=== PATIENT | male | born 1950 | race Caucasian/White ===

== ENCOUNTER 2017-12-03 16:40 | Inpatient (IN) | payer MEDICARE, OTHER ==
[~2017-12-03] VITALS: Ht 182.9 cm; Wt 93.3 kg
[2017-12-03 17:29] LABS: Basophils # (auto) 0.1 uL; Basophils % (auto) 0.8 % (0.0-2.0); Eosinophils # (auto) 0 uL; Eosinophils % (auto) 0.3 % (0.0-7.0); Hematocrit 42.6 % (41.0-53.0); Hemoglobin 14.4 g/dL (13.5-17.5); Lymphocytes # (auto) 0.5 uL; Lymphocytes % (auto) 3.8 % (10.0-50.0); Mean Corpuscular Hemoglobin 30.1 pg (28.0-32.0); Mean Corpuscular Hgb Conc. 33.9 g/dL (32.0-36.0); Mean Corpuscular Volume 88.8 fL (80.0-100.0); Monocytes # (auto) 0.8 uL; Monocytes % (auto) 5.9 % (0.0-12.0); Neutrophils # (auto) 12.5 uL; Neutrophils % (auto) 89.2 % (37.0-80.0); Platelet Count (auto) 179 10^3/uL (140-450); Red Blood Cells 4.79 10^6/uL (4.5-5.90); Red Cell Distribution Width 14.5 % (11.8-14.3); White Blood Cell 14.1 10^3/uL (4.4-10.8)
[2017-12-03 17:43] LABS: Albumin 2.5 g/dL (3.4-5.0); Calcium 7.7 mg/dL (8.5-10.1); Potassium 3.1 mmol/L (3.5-5.1)
[2017-12-03 17:59] LABS: Bilirubin, Total 0.8 mg/dL (0.2-1.0); Total Protein 7.4 g/dL (6.4-8.2)
[2017-12-03] MEDS ORDERED: SODIUM CHLORIDE 0.9% 1,000 ML IVB ONE (18:52)
[2017-12-03 20:12] LABS: Lactic Acid w/Reflex 2.5 mmol/L (0.4-2.0)
[2017-12-03 20:15] LABS: INR 1.02 (0.9-1.15); Partial Thromboplastin Time 38.7 sec (23.78-33.04); Prothrombin Time 10.9 sec (9.27-12.13)
[2017-12-03] MEDS ORDERED: SODIUM CHLORIDE 0.9% 1,000 ML IV ONE (21:30)
[2017-12-03] MEDS ORDERED: cefTRIAXone 1GM/10ml IVPUSH 10 ML IV ONE (21:30)
[2017-12-03] MEDS ORDERED: ENOXAPARIN SOD 100 MG/1 ML SYRINGE SC ONE (22:30)
[2017-12-03] MEDS ORDERED: POTASSIUM CHL 20 Meq TABLET PO ONE (22:30)
[2017-12-03] MEDS ORDERED: CLINDAMYCIN 600MG IV 50 ML IV ONE (23:30)
[2017-12-03] MEDS ORDERED: TEMAZEPAM 15 MG CAP PO PRN (23:30)
[2017-12-03] MEDS ORDERED: ONDANSETRON HCL 4 MG/2 ML VIAL IV PRN (23:30)
[2017-12-03] MEDS ORDERED: MORPHINE SULFATE 4 MG/ML SYR/VIAL IV PRN (23:30)
[2017-12-04] MEDS ORDERED: MORPHINE SULFATE 4 MG/ML SYR/VIAL ONE (00:18)
[2017-12-04 00:50] LABS: Urine Bacteria NONE SEEN /hpf (None Seen); Urine Blood 2+ /uL (Negative); Urine Mucus FEW (None Seen); Urine Specific Gravity 1.022 (1.001-1.035); Urine WBC 13 /hpf (0 - 3)
[2017-12-04 01:07] LABS: Alcohol, Urine < 3.0 mg/dL (0-5); Amphetamine Screen, Urine POSITIVE (NEGATIVE); Barbiturate Scree,Urine NEGATIVE (NEGATIVE); Benzodiazephine Screen, Urine NEGATIVE (NEGATIVE); Cannabinoid Screen, Urine NEGATIVE (NEGATIVE); Cocaine Screen, Urine NEGATIVE (NEGATIVE); Opiate Scree,Urine NEGATIVE (NEGATIVE); Phencyclidine Screen, Urine NEGATIVE (NEGATIVE)
[2017-12-04 02:00] VITALS: BP 134/71
[2017-12-04 02:16] VITALS: BP 134/71
[2017-12-04] MEDS ORDERED: HYDR-531 PO (02:59)
[2017-12-04] MEDS ORDERED: ASPI81TA27 PO (03:00)
[2017-12-04] MEDS: HYDROcodone-ACET 5/325MG TAB PO PRN ×2 (03:39→11:24)
[2017-12-04 05:20] LABS: Basophils # (auto) 0 uL; Basophils % (auto) 0.3 % (0.0-2.0); Eosinophils # (auto) 0 uL; Hematocrit 36.4 % (41.0-53.0); Hemoglobin 12.4 g/dL (13.5-17.5); Lymphocytes # (auto) 0.7 uL; Lymphocytes % (auto) 7.8 % (10.0-50.0); Mean Corpuscular Hemoglobin 30.4 pg (28.0-32.0); Mean Corpuscular Hgb Conc. 34.1 g/dL (32.0-36.0); Mean Corpuscular Volume 89.1 fL (80.0-100.0); Monocytes # (auto) 0.7 uL; Monocytes % (auto) 7.7 % (0.0-12.0); Neutrophils # (auto) 7.2 uL; Neutrophils % (auto) 84.2 % (37.0-80.0); Platelet Count (auto) 145 10^3/uL (140-450); Red Blood Cells 4.09 10^6/uL (4.5-5.90); Red Cell Distribution Width 14.7 % (11.8-14.3); White Blood Cell 8.6 10^3/uL (4.4-10.8)
[2017-12-04 05:46] LABS: BUN/Creatinine Ratio 19.7; Calcium 7.4 mg/dL (8.5-10.1)
[2017-12-04 05:50] LABS: Potassium 2.9 mmol/L (3.5-5.1)
[2017-12-04 06:00] VITALS: BP 115/71
[2017-12-04] MEDS: CLINDAMYCIN 600MG IV 50 ML IV SCH ×3 (06:09→21:29)
[2017-12-04] MEDS ORDERED: POTASSIUM CHL 20 Meq TABLET PO ONE (07:00)
[2017-12-04] MEDS: METOPROLOL TARTRATE 25 MG TAB PO SCH ×2 (10:00→21:30)
[2017-12-04] MEDS: ASPirin-EC 81 mg tab PO SCH (11:23)
[2017-12-04] MEDS: ENOXAPARIN SOD 100 MG/1 ML SYRINGE SC SCH ×2 (11:24→21:30)
[2017-12-04 12:00] VITALS: BP 116/65
[2017-12-04] MEDS ORDERED: SODIUM CHLORIDE 0.9% 1,000 ML IV SCH (12:00)
[2017-12-04] MEDS ORDERED: SODIUM CHLORIDE 0.9% 1,000 ML IV ONE (12:00)
[2017-12-04] MEDS: ACETAMINOPHEN 500 MG TAB PO PRN ×2 (12:57→23:49)
[2017-12-04] MEDS ORDERED: LISINOPRIL 20 MG TAB PO ONE (14:00)
[2017-12-04 15:58] VITALS: BP 101/61
[2017-12-04] MEDS: SODIUM CHLORIDE 0.9% 1,000 ML IV SCH (17:00)
[2017-12-04 19:49] VITALS: BP 107/62
[2017-12-04] MEDS: cefTRIAXone 1GM/10ml IVPUSH 10 ML IV SCH (20:50)
[2017-12-04] MEDS: ATORVASTATIN 20 MG TAB PO SCH (21:29)
[2017-12-04] MEDS: CHLORHEXIDINE 4% TOPICAL soln 237ML TOP SCH (21:30)
[2017-12-05] VITALS (7 sets, daily range): BP systolic 102–120; BP diastolic 58–75
[2017-12-05] MEDS: SODIUM CHLORIDE 0.9% 1,000 ML IV SCH ×3 (03:03→23:00)
[2017-12-05] MEDS: CLINDAMYCIN 600MG IV 50 ML IV SCH ×3 (05:24→21:36)
[2017-12-05] MEDS: HYDROcodone-ACET 5/325MG TAB PO PRN ×2 (07:56→20:23)
[2017-12-05] MEDS ORDERED: ADENOSINE 76 MG in GIVE UN-DILUTED 0 ML IV ONE (08:30)
[2017-12-05] MEDS: ASPirin-EC 81 mg tab PO SCH (09:40)
[2017-12-05] MEDS: ENOXAPARIN SOD 100 MG/1 ML SYRINGE SC SCH ×2 (09:40→21:36)
[2017-12-05] MEDS: METOPROLOL TARTRATE 25 MG TAB PO SCH ×2 (09:44→21:37)
[2017-12-05] MEDS: CHLORHEXIDINE 4% TOPICAL soln 237ML TOP SCH ×2 (09:44→21:37)
[2017-12-05] MEDS ORDERED: LISINOPRIL 20 MG TAB PO SCH (10:00)
[2017-12-05 10:20] LABS: Basophils # (auto) 0 uL; Basophils % (auto) 0.3 % (0.0-2.0); Eosinophils # (auto) 0 uL; Eosinophils % (auto) 0.1 % (0.0-7.0); Hematocrit 31.6 % (41.0-53.0); Hemoglobin 10.8 g/dL (13.5-17.5); Lymphocytes # (auto) 0.6 uL; Mean Corpuscular Hemoglobin 30.4 pg (28.0-32.0); Mean Corpuscular Hgb Conc. 34.1 g/dL (32.0-36.0); Mean Corpuscular Volume 89.3 fL (80.0-100.0); Monocytes % (auto) 13.1 % (0.0-12.0); Neutrophils # (auto) 6.1 uL; Neutrophils % (auto) 78.5 % (37.0-80.0); Nucleated Red Blood Cells % 0.1 %; Platelet Count (auto) 118 10^3/uL (140-450); Red Blood Cells 3.54 10^6/uL (4.5-5.90); Red Cell Distribution Width 14.8 % (11.8-14.3); White Blood Cell 7.7 10^3/uL (4.4-10.8)
[2017-12-05 10:26] LABS: Albumin 1.9 g/dL (3.4-5.0); BUN/Creatinine Ratio 18.1; Bilirubin, Total 0.7 mg/dL (0.2-1.0); Calcium 7.6 mg/dL (8.5-10.1); Potassium 3.3 mmol/L (3.5-5.1); Total Protein 5.8 g/dL (6.4-8.2)
[2017-12-05] MEDS ORDERED: POTASSIUM CHL 20 Meq TABLET PO ONE (11:00)
[2017-12-05] MEDS: cefTRIAXone 1GM/10ml IVPUSH 10 ML IV SCH (20:22)
[2017-12-05] MEDS: ATORVASTATIN 20 MG TAB PO SCH (21:36)
[2017-12-06] VITALS: BP 107/60
[2017-12-06 04:00] VITALS: BP 129/73
[2017-12-06] MEDS: CLINDAMYCIN 600MG IV 50 ML IV SCH ×3 (05:15→23:31)
[2017-12-06] MEDS: SODIUM CHLORIDE 0.9% 1,000 ML IV SCH (05:15)
[2017-12-06 05:29] LABS: Basophils # (auto) 0 uL; Basophils % (auto) 0.3 % (0.0-2.0); Eosinophils # (auto) 0 uL; Eosinophils % (auto) 0.2 % (0.0-7.0); Hematocrit 32.5 % (41.0-53.0); Lymphocytes # (auto) 0.8 uL; Lymphocytes % (auto) 9.4 % (10.0-50.0); Mean Corpuscular Hemoglobin 30.3 pg (28.0-32.0); Mean Corpuscular Hgb Conc. 33.7 g/dL (32.0-36.0); Mean Corpuscular Volume 89.9 fL (80.0-100.0); Monocytes % (auto) 11.8 % (0.0-12.0); Neutrophils # (auto) 6.9 uL; Neutrophils % (auto) 78.3 % (37.0-80.0); Nucleated Red Blood Cells % 0.1 %; Platelet Count (auto) 124 10^3/uL (140-450); Red Blood Cells 3.62 10^6/uL (4.5-5.90); Red Cell Distribution Width 14.9 % (11.8-14.3); White Blood Cell 8.8 10^3/uL (4.4-10.8)
[2017-12-06 06:19] LABS: Albumin 1.9 g/dL (3.4-5.0); BUN/Creatinine Ratio 16.9; Bilirubin, Total 0.7 mg/dL (0.2-1.0); Calcium 7.5 mg/dL (8.5-10.1); Potassium 3.6 mmol/L (3.5-5.1); Total Protein 5.8 g/dL (6.4-8.2)
[2017-12-06 07:30] VITALS: BP 113/77
[2017-12-06] MEDS: HYDROcodone-ACET 5/325MG TAB PO PRN (10:06)
[2017-12-06] MEDS: ASPirin-EC 81 mg tab PO SCH (10:13)
[2017-12-06] MEDS: ENOXAPARIN SOD 100 MG/1 ML SYRINGE SC SCH ×2 (10:13→23:01)
[2017-12-06] MEDS: METOPROLOL TARTRATE 25 MG TAB PO SCH ×2 (10:13→23:00)
[2017-12-06] MEDS: CHLORHEXIDINE 4% TOPICAL soln 237ML TOP SCH ×2 (10:14→23:01)
[2017-12-06] MEDS: SOD CHL 0.9%/ KCL 20MEQ 1,000 ML IV SCH ×2 (10:14→23:30)
[2017-12-06 12:26] LABS: Protein, Urine 29.4 mg/dL (0.0-11.9)
[2017-12-06 13:52] VITALS: BP 118/73
[2017-12-06 16:52] VITALS: BP 111/58
[2017-12-06 22:00] VITALS: BP 123/70
[2017-12-06] MEDS: cefTRIAXone 1GM/10ml IVPUSH 10 ML IV SCH (23:00)
[2017-12-06] MEDS: ATORVASTATIN 20 MG TAB PO SCH (23:00)
[2017-12-07 05:21] VITALS: BP 131/73
[2017-12-07] MEDS: SOD CHL 0.9%/ KCL 20MEQ 1,000 ML IV SCH ×2 (05:57→15:49)
[2017-12-07] MEDS: CLINDAMYCIN 600MG IV 50 ML IV SCH ×3 (05:57→23:00)
[2017-12-07 07:08] LABS: RPR Non Reactive (Non Reactive)
[2017-12-07 07:18] LABS: Basophils # (auto) 0 uL; Basophils % (auto) 0.3 % (0.0-2.0); Eosinophils # (auto) 0 uL; Eosinophils % (auto) 0.4 % (0.0-7.0); Hemoglobin 10.5 g/dL (13.5-17.5); Lymphocytes # (auto) 1.1 uL; Lymphocytes % (auto) 11.9 % (10.0-50.0); Mean Corpuscular Hemoglobin 30.3 pg (28.0-32.0); Mean Corpuscular Volume 89.1 fL (80.0-100.0); Monocytes % (auto) 11.2 % (0.0-12.0); Neutrophils % (auto) 76.2 % (37.0-80.0); Platelet Count (auto) 187 10^3/uL (140-450); Red Blood Cells 3.47 10^6/uL (4.5-5.90); Red Cell Distribution Width 14.8 % (11.8-14.3); White Blood Cell 9.1 10^3/uL (4.4-10.8)
[2017-12-07 07:31] LABS: Albumin 1.8 g/dL (3.4-5.0); BUN/Creatinine Ratio 15.2; Bilirubin, Total 0.7 mg/dL (0.2-1.0); Calcium 7.5 mg/dL (8.5-10.1); Phosphorus 2.4 mg/dL (2.5-4.90); Potassium 3.4 mmol/L (3.5-5.1)
[2017-12-07 09:18] VITALS: BP 126/87
[2017-12-07] MEDS: CHLORHEXIDINE 4% TOPICAL soln 237ML TOP SCH ×2 (10:00→22:00)
[2017-12-07] MEDS: ASPirin-EC 81 mg tab PO SCH (10:06)
[2017-12-07] MEDS: METOPROLOL TARTRATE 25 MG TAB PO SCH ×2 (10:07→23:01)
[2017-12-07] MEDS: ENOXAPARIN SOD 100 MG/1 ML SYRINGE SC SCH ×2 (10:07→23:01)
[2017-12-07] MEDS ORDERED: NEUTRA-PHOS TABLET PO ONE (10:45)
[2017-12-07] MEDS ORDERED: POTASSIUM CHL 20 Meq TABLET PO ONE (10:45)
[2017-12-07 13:00] VITALS: BP 115/78
[2017-12-07 16:54] VITALS: BP 137/81
[2017-12-07] MEDS: cefTRIAXone 1GM/10ml IVPUSH 10 ML IV SCH (21:16)
[2017-12-07 21:30] VITALS: BP 128/79
[2017-12-07] MEDS: ATORVASTATIN 20 MG TAB PO SCH (23:00)
[2017-12-08] MEDS: SOD CHL 0.9%/ KCL 20MEQ 1,000 ML IV SCH ×3 (02:41→21:49)
[2017-12-08 05:08] VITALS: BP 131/80
[2017-12-08] MEDS: CLINDAMYCIN 600MG IV 50 ML IV SCH (06:04)
[2017-12-08 09:00] VITALS: BP 131/82
[2017-12-08] MEDS: METOPROLOL TARTRATE 25 MG TAB PO SCH ×2 (09:43→21:48)
[2017-12-08] MEDS: ASPirin-EC 81 mg tab PO SCH (09:44)
[2017-12-08] MEDS: ENOXAPARIN SOD 100 MG/1 ML SYRINGE SC SCH ×2 (09:44→21:49)
[2017-12-08] MEDS: CHLORHEXIDINE 4% TOPICAL soln 237ML TOP SCH ×2 (09:44→21:49)
[2017-12-08] MEDS ORDERED: POTASSIUM CHL 20 Meq TABLET PO ONE (10:00)
[2017-12-08 13:00] VITALS: BP 132/81
[2017-12-08 13:25] LABS: Hepatitis B Surface Antigen Negative (Negative)
[2017-12-08 13:27] LABS: Hepatitis C Antibody Reactive (Negative)
[2017-12-08] MEDS: CLINDAMYCIN HCL 150 MG CAP PO SCH ×2 (14:50→21:49)
[2017-12-08 16:38] VITALS: BP 156/83
[2017-12-08] MEDS: cefTRIAXone 1GM/10ml IVPUSH 10 ML IV SCH (21:48)
[2017-12-08] MEDS: SACUBITRIL-VALSARTAN 24mg/26mg TAB PO SCH (21:49)
[2017-12-08] MEDS: ATORVASTATIN 20 MG TAB PO SCH (21:49)
[2017-12-08] MEDS: HYDROcodone-ACET 5/325MG TAB PO PRN (21:52)
[2017-12-08 22:00] VITALS: BP 126/80
[2017-12-09] MEDS: CLINDAMYCIN HCL 150 MG CAP PO SCH ×3 (05:07→21:48)
[2017-12-09 05:48] VITALS: BP 116/65
[2017-12-09] MEDS: SOD CHL 0.9%/ KCL 20MEQ 1,000 ML IV SCH ×2 (07:10→17:30)
[2017-12-09 08:30] VITALS: BP 110/68
[2017-12-09] MEDS: HYDROcodone-ACET 5/325MG TAB PO PRN ×2 (08:36→21:48)
[2017-12-09] MEDS: METOPROLOL TARTRATE 25 MG TAB PO SCH ×2 (09:56→11:11)
[2017-12-09] MEDS: ASPirin-EC 81 mg tab PO SCH (10:00)
[2017-12-09 10:52] LABS: INR 1.21 (0.9-1.15); Partial Thromboplastin Time 37.1 sec (23.78-33.04); Prothrombin Time 12.8 sec (9.27-12.13)
[2017-12-09] MEDS: SACUBITRIL-VALSARTAN 24mg/26mg TAB PO SCH ×2 (11:10→21:48)
[2017-12-09] MEDS: CHLORHEXIDINE 4% TOPICAL soln 237ML TOP SCH ×2 (11:11→22:02)
[2017-12-09] MEDS ORDERED: IOHEXOL 350 MG/ML 100ML IJ ONE (12:06)
[2017-12-09] MEDS ORDERED: LIDOCAINE 2% (LOCAL ANESTH.) PF 5ml SDV ONE (12:06)
[2017-12-09] MEDS ORDERED: ANGIOMAX 250 MG VIAL IV ONE (12:19)
[2017-12-09] MEDS ORDERED: SODIUM CHL 0.9% 50 ML ONE (12:19)
[2017-12-09] MEDS ORDERED: MIDAZOLAM HCL 1MG/1ML-2 ML VIAL ONE (12:19)
[2017-12-09] MEDS ORDERED: fentaNYL CITRATE 100 MCG/2 ML VL ONE (12:20)
[2017-12-09] MEDS ORDERED: CLOPIDOGREL 300 MG TAB ONE (12:46)
[2017-12-09] MEDS ORDERED: POTASSIUM PHOSPHATE 44 MEQ in D5W 5% 250 ML IV ONE (14:00)
[2017-12-09 16:32] VITALS: BP 129/75
[2017-12-09] MEDS: cefTRIAXone 1GM/10ml IVPUSH 10 ML IV SCH (21:34)
[2017-12-09] MEDS: ATORVASTATIN 20 MG TAB PO SCH (21:55)
[2017-12-09 22:00] VITALS: BP 155/88
[2017-12-10] MEDS: SOD CHL 0.9%/ KCL 20MEQ 1,000 ML IV SCH ×2 (03:30→13:30)
[2017-12-10 05:00] VITALS: BP 124/94
[2017-12-10] MEDS: CLINDAMYCIN HCL 150 MG CAP PO SCH ×2 (06:00→14:00)
[2017-12-10 07:54] VITALS: BP 127/75
[2017-12-10] MEDS ORDERED: CLOPIDOGREL BISULFATE 75 MG TAB PO SCH (10:00)
[2017-12-10] MEDS: METOPROLOL TARTRATE 25 MG TAB PO SCH (10:37)
[2017-12-10] MEDS: ASPirin-EC 81 mg tab PO SCH (10:38)
[2017-12-10] MEDS: SACUBITRIL-VALSARTAN 24mg/26mg TAB PO SCH (10:38)
[2017-12-10 12:16] VITALS: BP 109/74
[2017-12-10] MEDS: CHLORHEXIDINE 4% TOPICAL soln 237ML TOP SCH (12:18)
[2017-12-10 14:19] VITALS: BP 109/74
== END 2017-12-10 17:00 | disposition home or self-care (01) | DRG 853 ==
LOC: ER 16:40 → OVERFLOW 16:41 → DOU IN ICU 23:46 → TELE-CENTR 12-06 11:55
PROVIDERS: ADMIT Nurse Practitioner Family; ATTEND Family Medicine
PROC: 027135Z Dilation of Coronary Artery, Two Arteries with Two Drug-eluting Intraluminal Devices, Percutaneous Approach (ICD-10-PCS; principal; 2017-12-03)
PROC: B2111ZZ Fluoroscopy of Multiple Coronary Arteries using Low Osmolar Contrast (ICD-10-PCS; 2017-12-03)
DX: A41.9 Sepsis, unspecified organism (principal); I21.4 Non-ST elevation (NSTEMI) myocardial infarction; N17.0 Acute kidney failure with tubular necrosis; L03.115 Cellulitis of right lower limb; M62.82 Rhabdomyolysis; I42.9 Cardiomyopathy, unspecified; E87.6 Hypokalemia; F15.90 Other stimulant use, unspecified, uncomplicated; Z98.61 Coronary angioplasty status; Z98.890 Other specified postprocedural states; I25.10 Atherosclerotic heart disease of native coronary artery without angina pectoris; E83.39 Other disorders of phosphorus metabolism
CPT/HCPCS: 36415; 70450; 71045; 73630; 73700; 76775; 78452; 80048; 80053; 80061; 80307; 81001; 82306; 82550; 82570; 82962; 83605; 83735; 84100; 84156; 84166; 84300; 84484; 85025; 85379; 85610; 85652; 85730; 86038; 86141; 86592; 86803; 86850; 86900; 86901; 87040; 87081; 87086; 87340; 87493; 93005; 93017; 93306; 93926; 93971; 96361; 96365; 96372; 96375; 99152; 99291; A6257; C1874; C1887; J0153; J0696; J2001; J2250; J2405; J3490; J7060

== ENCOUNTER 2019-03-10 15:01 | Emergency (ER) | payer MEDICARE ==
[~2019-03-10] VITALS: Ht 182.9 cm; Wt 90.7 kg
[~2019-03-10 15:01] MED LIST: ASPI-404 PO; HYDR-531 PO
[2019-03-10 16:07] LABS: Basophils # (auto) 0 uL; Basophils % (auto) 0.4 % (0.0-2.0); Eosinophils # (auto) 0.1 uL; Eosinophils % (auto) 1.5 % (0.0-7.0); Hematocrit 30.9 % (41.0-53.0); Hemoglobin 10.3 g/dL (13.5-17.5); Lymphocytes # (auto) 1.4 uL; Lymphocytes % (auto) 18.1 % (10.0-50.0); Mean Corpuscular Hemoglobin 27.6 pg (28.0-32.0); Mean Corpuscular Hgb Conc. 33.4 g/dL (32.0-36.0); Mean Corpuscular Volume 82.5 fL (80.0-100.0); Monocytes # (auto) 0.7 uL; Monocytes % (auto) 8.7 % (0.0-12.0); Neutrophils # (auto) 5.4 uL; Neutrophils % (auto) 71.3 % (37.0-80.0); Platelet Count (auto) 348 10^3/uL (140-450); Red Blood Cells 3.75 10^6/uL (4.5-5.90); Red Cell Distribution Width 16.6 % (11.8-14.3); White Blood Cell 7.6 10^3/uL (4.4-10.8)
[2019-03-10 16:23] LABS: Albumin 2.9 g/dL (3.4-5.0); Potassium 3.9 mmol/L (3.5-5.1)
[2019-03-10 16:26] LABS: BUN/Creatinine Ratio 12.1; Bilirubin, Total 0.5 mg/dL (0.2-1.0); Total Protein 8.1 g/dL (6.4-8.2)
[2019-03-10 16:50] LABS: Urine Bacteria FEW /hpf (None Seen); Urine Blood Negative /uL (Negative); Urine Mucus FEW (None Seen); Urine Specific Gravity 1.021 (1.001-1.035); Urine WBC 1 /hpf (0 - 3)
[2019-03-10 17:37] LABS: Alcohol, Urine < 3.0 mg/dL (0-5); Amphetamine Screen, Urine NEGATIVE (NEGATIVE); Barbiturate Scree,Urine NEGATIVE (NEGATIVE); Benzodiazephine Screen, Urine POSITIVE (NEGATIVE); Cannabinoid Screen, Urine NEGATIVE (NEGATIVE); Cocaine Screen, Urine NEGATIVE (NEGATIVE); Opiate Scree,Urine POSITIVE (NEGATIVE); Phencyclidine Screen, Urine NEGATIVE (NEGATIVE)
== END 2019-03-10 16:55 | disposition left against medical advice (07) ==
LOC: ER 15:01
DX: M25.539 Pain in unspecified wrist (principal); Z53.21 Procedure and treatment not carried out due to patient leaving prior to being seen by health care provider
CPT/HCPCS: 36415; 70450; 73110; 80053; 80307; 81001; 85025

== ENCOUNTER 2020-01-28 06:38 | Inpatient (IN) | payer OTHER, MEDICAID ==
[~2020-01-28] VITALS: Ht 182.9 cm; Wt 86.9 kg
[~2020-01-28 06:38] MED LIST changes: -ASPI-404 PO; +ASPI-543 PO
[2020-01-28] MEDS ORDERED: SODIUM CHLORIDE 0.9% 1,000 ML IV ONE (10:00)
[2020-01-28] MEDS ORDERED: LORazepam 2MG/ML-1ML VIAL IV ONE (10:00)
[2020-01-28] MEDS ORDERED: HALOPERIDOL LACTATE 5 MG/ML INJ VIAL IM ONE (10:00)
[2020-01-28 10:15] LABS: Albumin 2.9 g/dL (3.4-5.0); Anion Gap 6 (5-15); Blood Alcohol < 3.0 mg/dL (0-5); Blood Urea Nitrogen 21 mg/dL (7-18); Calcium 8.2 mg/dL (8.5-10.1); Carbon Dioxide 27 mmol/L (21-32); Chloride 105 mmol/L (98-107); Glucose 97 mg/dL (74-106); Magnesium 2.2 mg/dL (1.6-2.6); Potassium 4.2 mmol/L (3.5-5.1); Sodium 138 mmol/L (136-145)
[2020-01-28 10:20] LABS: Alanine Aminotransferase 21 U/L (16-61); Alkaline Phosphatase 52 U/L (45-117); Aspartate Aminotransferase 19 U/L (15-37); BUN/Creatinine Ratio 16.5; Bilirubin, Total 0.4 mg/dL (0.2-1.0); GFR African American 73 mL/min; GFR Non-African American 60 mL/min; Total Protein 7.2 g/dL (6.4-8.2)
[2020-01-28 10:21] LABS: Basophils # (auto) 0 10 ^3/uL (0-0.2); Basophils % (auto) 0.4 % (0.0-2.0); Eosinophils # (auto) 0 10 ^3/uL (0-0.8); Eosinophils % (auto) 0.1 % (0.0-7.0); Hematocrit 30.5 % (41.0-53.0); Hemoglobin 9.8 g/dL (13.5-17.5); Lymphocytes # (auto) 1.4 10 ^3/uL (0.4-5.4); Lymphocytes % (auto) 15.9 % (10.0-50.0); Mean Corpuscular Hgb Conc. 32.1 g/dL (32.0-36.0); Mean Corpuscular Volume 90.2 fL (80.0-100.0); Monocytes # (auto) 0.6 10 ^3/uL (0-1.3); Monocytes % (auto) 6.3 % (0.0-12.0); Neutrophils # (auto) 6.8 10 ^3/uL (1.6-8.6); Neutrophils % (auto) 77.3 % (37.0-80.0); Platelet Count (auto) 360 10^3/uL (140-450); Red Blood Cells 3.38 10^6/uL (4.5-5.90); Red Cell Distribution Width 13.8 % (11.8-14.3); White Blood Cell 8.9 10^3/uL (4.4-10.8)
[2020-01-28 10:28] LABS: INR 1.16 (0.9-1.15); Partial Thromboplastin Time 32.3 sec (23.0-31.2)
[2020-01-28] MEDS ORDERED: ENOXAPARIN SOD 80 MG/0.8ML SYRINGE SC ONE (11:15)
[2020-01-28 11:33] LABS: Urine WBC None Seen /hpf (0 - 3)
[2020-01-28 11:46] LABS: Urine Amorphous Crystal MOD /hpf (None Seen); Urine Bacteria NONE SEEN /hpf (None Seen); Urine Blood Negative /uL (Negative); Urine Hyaline Cast FEW /lpf (0 - 2); Urine Mucus FEW (None Seen); Urine Specific Gravity 1.023 (1.001-1.035)
[2020-01-28 11:55] LABS: Alcohol, Urine < 3.0 mg/dL (0-10); Amphetamine Screen, Urine NEGATIVE (NEGATIVE); Barbiturate Scree,Urine NEGATIVE (NEGATIVE); Benzodiazephine Screen, Urine POSITIVE (NEGATIVE); Cannabinoid Screen, Urine NEGATIVE (NEGATIVE); Cocaine Screen, Urine NEGATIVE (NEGATIVE); Phencyclidine Screen, Urine NEGATIVE (NEGATIVE)
[2020-01-28] MEDS ORDERED: MEROPENEM 1GM IVPB 100 ML IV ONE (12:00)
[2020-01-28] MEDS ORDERED: ASPirin 81 mg TAB PO ONE (12:00)
[2020-01-28] MEDS ORDERED: ATORVASTATIN 20 MG TAB PO ONE (12:00)
[2020-01-28] MEDS ORDERED: MORPHINE SULFATE 4 MG/ML SYR/VIAL IV PRN (12:00)
[2020-01-28] MEDS ORDERED: VANCOMYCIN PER PHARMACY 0 MG IV SCH (12:00)
[2020-01-28] MEDS ORDERED: NITROGLYCERIN 0.4 MG SL TAB SL PRN ×3 (12:00)
[2020-01-28] MEDS ORDERED: METOPROLOL SUCCINATE XL 50 MG TAB PO ONE (12:00)
[2020-01-28] MEDS ORDERED: FUROSEMIDE 40 MG/4 ML VIAL IV ONE (12:00)
[2020-01-28] MEDS ORDERED: ENOXAPARIN SOD 100 MG/1 ML SYRINGE SC ONE (12:00)
[2020-01-28] MEDS ORDERED: ALUM & MAG HYDROX-SIMETH LIQ(MAALOX) 30 ML PO PRN (12:00)
[2020-01-28] MEDS ORDERED: LORazepam 0.5 MG TAB PO PRN ×2 (12:00)
[2020-01-28] MEDS ORDERED: ACETAMINOPHEN 500 MG TAB PO PRN (12:00)
[2020-01-28] MEDS ORDERED: INFLUENZA QUAD 2020-2021 0.5 ML SYRG IM ONE (12:00)
[2020-01-28] MEDS ORDERED: MORPHINE SULF INJ 2 MG/ML SYRINGE 1ML IV PRN ×3 (12:00)
[2020-01-28] MEDS ORDERED: HYDROcodone-ACET 5/325MG TAB PO PRN (12:00)
[2020-01-28] MEDS ORDERED: PNEUMOCOCCAL VACC POLYS 25 MCG/0.5 ML VIAL IM ONE (12:00)
[2020-01-28] MEDS ORDERED: SODIUM CHLORIDE 0.9% 1,000 ML IV SCH (12:00)
[2020-01-28 12:05] LABS: Opiate Scree,Urine POSITIVE (NEGATIVE)
[2020-01-28] MEDS ORDERED: methylPREDNISolone SOD SUCC 125 MG/2 ML VL IV ONE (12:15)
[2020-01-28] MEDS ORDERED: SACU1TAB PO (12:22)
[2020-01-28] MEDS ORDERED: EZET10TA22 PO (12:22)
[2020-01-28] MEDS ORDERED: CLON1TAB10 PO (12:22)
[2020-01-28] MEDS: LORazepam 2MG/ML-1ML VIAL IM ONE ×2 (13:30→15:35)
[2020-01-28] MEDS ORDERED: VANCOMYCIN 1GM/250ML 250 ML IV ONE (14:00)
[2020-01-28] MEDS: ALBUTEROL SULF HFA 90MCG INH 200DOSE IN SCH ×2 (14:00→22:00)
--- NOTE | 2020-01-28 14:00 | NUR ---
Respiratory note: MEDICATION HELD PENDING COVID-19 RESULTS. RN AWARE. WILL CONTINUE TO MONITOR PT.
[2020-01-28 15:16] VITALS: BP 114/59
[2020-01-28 17:18] LABS: Basophils # (auto) 0 10 ^3/uL (0-0.2); Basophils % (auto) 0.4 % (0.0-2.0); Eosinophils # (auto) 0 10 ^3/uL (0-0.8); Eosinophils % (auto) 0.2 % (0.0-7.0); Hematocrit 32.1 % (41.0-53.0); Hemoglobin 10.7 g/dL (13.5-17.5); Lymphocytes # (auto) 0.9 10 ^3/uL (0.4-5.4); Lymphocytes % (auto) 8.8 % (10.0-50.0); Mean Corpuscular Hemoglobin 29.8 pg (28.0-32.0); Mean Corpuscular Hgb Conc. 33.2 g/dL (32.0-36.0); Mean Corpuscular Volume 89.8 fL (80.0-100.0); Monocytes # (auto) 0.2 10 ^3/uL (0-1.3); Monocytes % (auto) 1.6 % (0.0-12.0); Neutrophils # (auto) 9.1 10 ^3/uL (1.6-8.6); Nucleated Red Blood Cells % 0.1 %; Platelet Count (auto) 327 10^3/uL (140-450); Red Blood Cells 3.58 10^6/uL (4.5-5.90); Red Cell Distribution Width 13.9 % (11.8-14.3); White Blood Cell 10.2 10^3/uL (4.4-10.8)
[2020-01-28] MEDS: VANCOMYCIN 1GM/250ML 250 ML IV SCH (17:59)
[2020-01-28] MEDS: FUROSEMIDE 20 MG/2 ML VIAL IV SCH (18:00)
[2020-01-28 18:10] LABS: CRP High Sensitivity 6.69 mg/dL (< 0.3)
[2020-01-28] MEDS ORDERED: ENOXAPARIN SOD 100 MG/1 ML SYRINGE SC SCH (22:00)
[2020-01-28] MEDS: BUDESONIDE (INHALATION) 180 MCG IH IN SCH (22:00)
--- NOTE | 2020-01-28 23:12 | NUR ---
MDIS WERE HELD DUE TO PENDING COVID RESULTS. NO DISTRESS NOTED, WILL CONTINUE TO MONITOR.
[2020-01-29] MEDS: methylPREDNISolone SOD SUCC 40 MG/ML VL IV SCH ×3 (04:35→14:15)
[2020-01-29] MEDS: MEROPENEM 1GM IVPB 100 ML IV SCH ×3 (04:36→14:15)
[2020-01-29] MEDS: VANCOMYCIN 1GM/250ML 250 ML IV SCH (05:23)
[2020-01-29 05:53] LABS: Basophils # (auto) 0 10 ^3/uL (0-0.2); Basophils % (auto) 0.3 % (0.0-2.0); Eosinophils # (auto) 0 10 ^3/uL (0-0.8); Hematocrit 34.8 % (41.0-53.0); Hemoglobin 11.5 g/dL (13.5-17.5); Lymphocytes # (auto) 0.9 10 ^3/uL (0.4-5.4); Mean Corpuscular Hemoglobin 29.3 pg (28.0-32.0); Mean Corpuscular Hgb Conc. 32.9 g/dL (32.0-36.0); Mean Corpuscular Volume 89.1 fL (80.0-100.0); Monocytes # (auto) 0.1 10 ^3/uL (0-1.3); Monocytes % (auto) 0.9 % (0.0-12.0); Neutrophils # (auto) 6.5 10 ^3/uL (1.6-8.6); Neutrophils % (auto) 86.8 % (37.0-80.0); Platelet Count (auto) 360 10^3/uL (140-450); Red Blood Cells 3.91 10^6/uL (4.5-5.90); White Blood Cell 7.5 10^3/uL (4.4-10.8)
[2020-01-29] MEDS: ALBUTEROL SULF HFA 90MCG INH 200DOSE IN SCH (06:00)
[2020-01-29] MEDS: FUROSEMIDE 20 MG/2 ML VIAL IV SCH ×2 (06:07→18:43)
--- NOTE | 2020-01-29 06:20 | NUR ---
Respiratory note: MEDICATION NOT GIVEN. PENDING COVID RESULTS HR 72, RR 12, POX 92% ON RA, BS COURSE. NO DISTRESS NOTED.
[2020-01-29 06:27] LABS: Albumin 2.8 g/dL (3.4-5.0); BUN/Creatinine Ratio 23.9; Bilirubin, Total 0.4 mg/dL (0.2-1.0); Calcium 8.4 mg/dL (8.5-10.1); Potassium 3.6 mmol/L (3.5-5.1); Total Protein 7.6 g/dL (6.4-8.2)
[2020-01-29] MEDS ORDERED: LISINOPRIL 5 MG TAB PO SCH (10:00)
[2020-01-29] MEDS ORDERED: DOCUSATE SOD 100 MG CAP PO SCH (10:00)
[2020-01-29] MEDS ORDERED: ZINC SULFATE 220mg CAP or TAB PO SCH (10:00)
[2020-01-29] MEDS ORDERED: METOPROLOL SUCCINATE XL 50 MG TAB PO SCH (10:00)
[2020-01-29] MEDS: BUDESONIDE (INHALATION) 180 MCG IH IN SCH (10:00)
[2020-01-29] MEDS: ASPirin 81 mg TAB PO SCH (10:28)
[2020-01-29] MEDS: CHOLECALCIFEROL (VITD3) 2,000 UNIT CAP PO SCH (10:29)
[2020-01-29] MEDS: ASCORBIC ACID 1,000 MG TAB PO SCH (10:29)
[2020-01-29] MEDS ORDERED: ALBUTEROL SULF 2.5 MG/0.5ML(0.5%) NEB SOLN NEB PRN (13:15)
--- NOTE | 2020-01-29 13:46 | NUR ---
Telemetry admit from ER SUNI SHAHID admitted to Telemetry unit after SBAR received. Patient oriented to Jo Quintanilla, primary RN, unit, room, bed, and unit policies regarding patient care and visiting hours. Patient now on continuous telemetry monitoring, tele box #62 and telemetry reading on arrival to unit is SR, 82bpm. Patient is alertx3, no s/s of distress/sob noted/stated. No c/o pain. Patient placed on bedside oxygen, weighed by bedscale and encouraged to call if they need something. All questions and concerns addressed, patient verbalized understanding.
[2020-01-29] MEDS ORDERED: GABA300C10 PO (13:57)
[2020-01-29] MEDS ORDERED: VALS40TA2 PO (13:57)
[2020-01-29 14:04] VITALS: BP 165/45
--- NOTE | 2020-01-29 14:20 | NUR ---
Home Medications EMI Cervantes transferred patient's home medications to pharmacy, copy in the hard chart.
[2020-01-29] MEDS ORDERED: ENOXAPARIN SOD 100 MG/1 ML SYRINGE SC ONE (15:45)
[2020-01-29] MEDS ORDERED: IPRATROPIUM BROM 0.5 MG/2.5ML INH SOL NEB PRN (15:45)
--- NOTE | 2020-01-29 17:29 | NUR ---
IV insertion attempt Attempted 3 times. no IV obtained. Patient tolerated well. lanolin plant operator aware.
--- NOTE | 2020-01-29 18:00 | NUR ---
Patient refused Lovenox medication. Education provided.
--- NOTE | 2020-01-29 19:15 | NUR ---
Respiratory note: PT ASSESSED FOR PRN ,ED NEB TX. HR 84, RR 18, SPO2 97% ON RA. NO S/S OF ANY RESPIRATORY DISTRESS NOTED. ADVISED PT TO CALL IF TX IS NEEDED. RT NAME AND PAGER NUMBER WRITTEN ON PT'S BOARD.
--- NOTE | 2020-01-29 19:25 | NUR ---
Closing Note Patient is comfortably resting in bed, breath sounds even and unlabored. Bed at lowest locked position and shea light within reach. Care endorsed to NOC EMI Morris
--- NOTE | 2020-01-29 19:30 | NUR ---
OPENING SHIFT NOTE Assumed care of patient who is A&O x3. Currently on RA with no s/s of distress. Denies pain at this time. PIV in right hand is intact and patent. Flushed with 10ml NS. PIV in left wrist is intact and patent. Flushed with 10ml NS. Aranda catheter in place and patent. Tubing is free from kinks and collection bag is hung below the level of the bladder, draining light yellow urine to gravity. Patient is currently NPO for CT angio of the chest. Patient is aware. POC discussed and patient verbalizes understanding. Bed is in low locked position with side rails up x2. Call light is within reach and patient encouraged to call for assistance when needed. Will continue to monitor for changes PRN.
[2020-01-29] MEDS ORDERED: IOHEXOL 300 MG/ML 100ML BOTTLE IJ ONE (19:55)
[2020-01-29 20:00] VITALS: BP 142/74
--- NOTE | 2020-01-29 20:00 | NUR ---
Pt taken to radiology via wheelchair for CT angio of the chest. No distress noted at this time.
--- NOTE | 2020-01-29 20:17 | NUR ---
Pt returned to unit. No distress noted.
[2020-01-29 21:30] VITALS: BP 142/74
[2020-01-29] MEDS: POTASSIUM CHL 10 Meq TABLET PO SCH (21:41)
[2020-01-29] MEDS: SACUBITRIL-VALSARTAN 24mg/26mg TAB PO SCH (21:41)
[2020-01-29] MEDS: CARVEDILOL 3.125 MG TAB PO SCH (21:41)
[2020-01-29] MEDS: ATORVASTATIN 20 MG TAB PO SCH (21:41)
[2020-01-30 05:08] VITALS: BP 149/90
[2020-01-30] MEDS: FUROSEMIDE 20 MG/2 ML VIAL IV SCH ×2 (05:30→16:59)
--- NOTE | 2020-01-30 07:20 | NUR ---
Opening Shift Note: Assumed care of patient, awake and alert x 3. No S/S of distress/SOB or pain. Upon assessment of patient, it is noted that patient pulled out Aranda, and placed in trash can. When patient is asked about this, patient states "it just came out." This RN examined Aranda and balloon still intact and full. Patient had minimal bleeding at site, but refused to be cleaned. Patient denied pain. Tele monitor also not in place, and found in trash can. Tele monitor cleaned and placed back on patient. Partial bedding change, and gown changed. Bed in lowest locked position, side rails up x 2, call light within reach. Patient instructed on POC and to call for assistance PRN, will continue to monitor for changes Q1hr and PRN. Addendum: 01/30/20 at 1444 by AYALA LOCKE RN RN AWARE OF NASIMA
--- NOTE | 2020-01-30 08:47 | NUR ---
PATIENT CURRENTLY EXPERIENCING VOMITING. AFTER VOMITING PATIENT STATES NO NAUSEA. WILL CONTINUE TO MONITOR.
[2020-01-30 09:00] VITALS: BP 151/77
[2020-01-30 09:07] LABS: Basophils # (auto) 0 10 ^3/uL (0-0.2); Eosinophils # (auto) 0 10 ^3/uL (0-0.8); Hemoglobin 13.3 g/dL (13.5-17.5); Lymphocytes # (auto) 1.4 10 ^3/uL (0.4-5.4); Lymphocytes % (auto) 6.6 % (10.0-50.0); Monocytes # (auto) 1.1 10 ^3/uL (0-1.3)
[2020-01-30 09:09] LABS: Hematocrit 40.2 % (41.0-53.0); Mean Corpuscular Hemoglobin 29.2 pg (28.0-32.0); Mean Corpuscular Hgb Conc. 33.1 g/dL (32.0-36.0); Mean Corpuscular Volume 88.2 fL (80.0-100.0); Monocytes % (auto) 5.6 % (0.0-12.0); Neutrophils # (auto) 18.1 10 ^3/uL (1.6-8.6); Neutrophils % (auto) 87.8 % (37.0-80.0); Platelet Count (auto) 491 10^3/uL (140-450); Red Blood Cells 4.55 10^6/uL (4.5-5.90); Red Cell Distribution Width 14.1 % (11.8-14.3); White Blood Cell 20.7 10^3/uL (4.4-10.8)
[2020-01-30 09:32] LABS: Albumin 3.1 g/dL (3.4-5.0); BUN/Creatinine Ratio 19.9; Calcium 8.8 mg/dL (8.5-10.1)
[2020-01-30 09:37] LABS: Potassium 2.9 mmol/L (3.5-5.1)
--- NOTE | 2020-01-30 09:37 | NUR ---
CRITICAL LAB: Received call from Clementina Gonzalez from lab. Critical potassium 2.9. Paged Dr. Low at this time. Awaiting call back.
[2020-01-30 09:39] LABS: Bilirubin, Total 0.5 mg/dL (0.2-1.0); Total Protein 8.2 g/dL (6.4-8.2)
[2020-01-30] MEDS: CHOLECALCIFEROL (VITD3) 2,000 UNIT CAP PO SCH (10:00)
[2020-01-30] MEDS: ASCORBIC ACID 1,000 MG TAB PO SCH (10:00)
[2020-01-30] MEDS: ASPirin 81 mg TAB PO SCH (10:01)
[2020-01-30] MEDS: SACUBITRIL-VALSARTAN 24mg/26mg TAB PO SCH ×2 (10:02→21:52)
[2020-01-30] MEDS: CARVEDILOL 3.125 MG TAB PO SCH ×2 (10:02→21:53)
[2020-01-30] MEDS: PANTOPRAZOLE 40 MG TAB PO SCH (10:02)
[2020-01-30] MEDS: POTASSIUM CHL 10 Meq TABLET PO SCH ×2 (10:02→21:52)
[2020-01-30] MEDS: ONDANSETRON HCL 4 MG/2 ML VIAL IV PRN ×3 (10:03→21:54)
[2020-01-30] MEDS: ENOXAPARIN SOD 100 MG/1 ML SYRINGE SC SCH ×2 (10:13→21:54)
--- NOTE | 2020-01-30 10:25 | NUR ---
PATIENT STATES HE HAS URINATED SINCE HE PULLED DEL REAL OUT. PATIENT STILL HAVING MINIMAL BLEEDING AT SITE. PATIENT REFUSED TO BE CLEANED.
--- NOTE | 2020-01-30 10:50 | NUR ---
Respiratory note: ASSESSED PT FOR PRN TX PT WAS AWAKE AND ALERT, NO RESP DISTRESS NOTED. HR 110, RR 18, SPO2 97% ON ROOM AIR. NO INDICATION FOR TX AT THIS TIME. PT KNOWS TO HAVE RT PAGED IF TX IS NEEDED.
--- NOTE | 2020-01-30 10:59 | NUR ---
DR. WILLS: DR. BELTRAN AT BEDSIDE. DISCUSSED POC WITH PATIENT. PATIENT VERBALLY AGREED.
[2020-01-30] MEDS ORDERED: DEXTROSE (50%) 50ML SYRG IV PRN (11:00)
[2020-01-30] MEDS ORDERED: POTASSIUM EFFERVESENT TAB 25 MEQ PO ONE (11:00)
[2020-01-30] MEDS: ACCU-CHEK COMFORT CURVE STRIP VI SCH ×3 (11:30→21:53)
[2020-01-30] MEDS: InsuLIN REG 1unit/0.01ml Soln (100units/ml) SC SCH ×3 (11:50→21:54)
[2020-01-30] MEDS: Glucerna Carbsteady SHAKE Vanilla 8oz PO SCH ×2 (11:50→16:59)
[2020-01-30 13:00] VITALS: BP 136/67
[2020-01-30 17:00] VITALS: BP 149/89
--- NOTE | 2020-01-30 17:45 | NUR ---
FULL LINEN CHANGED. PATIENT STILL HAVING MINIMAL BLEEDING FROM DEL REAL. PATIENT STATES NO PAIN AT SITE. PATIENT CLEANED SELF WITH WASH RAGS. WILL CONTINUE TO MONITOR.
--- NOTE | 2020-01-30 18:46 | NUR ---
CLOSING NOTE: PATIENT SITTING IN BEDSIDE CHAIR. NO S/S OF DISTRESS AT THIS TIME.
--- NOTE | 2020-01-30 19:15 | NUR ---
OPENING SHIFT NOTE Assumed care of patient who is alert and oriented x3. Currently on RA with no S/S of distress noted. Upon entering the room patient was in the bathroom, patient had bloody urine all over the floor and self. Assisted patient back to the bed who was very weak. Encouraged patient to call for assistance as needed and applied the bed alarm. Urinal is bedside. Per report patient had a colmenares that he pulled out with the balloon intact earlier in the day, MD is aware of the bloody urine and no colmenares. Bed in lowest position, locked, alarm on, side rails upx2, call light within reach. POC discussed with patient all questions answered, verbalized understanding. Will continue to monitor PRN/Q1hr.
--- NOTE | 2020-01-30 20:00 | NUR ---
Respiratory note: PT ASSESSED FOR PRN MED NEB TX. HR 97, RR 18, SPO2 92% ON RA. NO S/S OF ANY RESPIRATORY DISTRESS NOTED. ADVISED PT TO CALL IF TX IS NEEDED. RT NAME AND PAGER NUMBER WRITTEN PT'S BOARD.
[2020-01-30] MEDS: ATORVASTATIN 20 MG TAB PO SCH (21:52)
[2020-01-30 22:00] VITALS: BP 153/85
[2020-01-31] MEDS: ONDANSETRON HCL 4 MG/2 ML VIAL IV PRN (04:36)
[2020-01-31] MEDS: FUROSEMIDE 20 MG/2 ML VIAL IV SCH ×2 (06:05→17:30)
[2020-01-31 06:07] VITALS: BP 159/81
[2020-01-31 06:21] LABS: Basophils # (auto) 0 10 ^3/uL (0-0.2); Basophils % (auto) 0.2 % (0.0-2.0); Eosinophils # (auto) 0 10 ^3/uL (0-0.8); Mean Corpuscular Hemoglobin 29.4 pg (28.0-32.0); Mean Corpuscular Hgb Conc. 33.2 g/dL (32.0-36.0); Monocytes # (auto) 1.1 10 ^3/uL (0-1.3); Nucleated Red Blood Cells % 0.1 %
[2020-01-31 06:30] LABS: Hematocrit 40.2 % (41.0-53.0); Hemoglobin 13.4 g/dL (13.5-17.5); Lymphocytes # (auto) 2.4 10 ^3/uL (0.4-5.4); Lymphocytes % (auto) 17.1 % (10.0-50.0); Mean Corpuscular Volume 88.6 fL (80.0-100.0); Neutrophils # (auto) 10.5 10 ^3/uL (1.6-8.6); Neutrophils % (auto) 74.7 % (37.0-80.0); Platelet Count (auto) 490 10^3/uL (140-450); Red Blood Cells 4.54 10^6/uL (4.5-5.90); Red Cell Distribution Width 14.4 % (11.8-14.3); White Blood Cell 14.1 10^3/uL (4.4-10.8)
[2020-01-31 06:30] LABS: Calcium 9.1 mg/dL (8.5-10.1); Potassium 3.3 mmol/L (3.5-5.1)
[2020-01-31] MEDS: ACCU-CHEK COMFORT CURVE STRIP VI SCH ×4 (06:33→22:16)
[2020-01-31] MEDS: InsuLIN REG 1unit/0.01ml Soln (100units/ml) SC SCH ×4 (06:36→22:00)
[2020-01-31 06:38] LABS: BUN/Creatinine Ratio 26.4
--- NOTE | 2020-01-31 07:29 | NUR ---
CARE ENDORSED TO DAY SHIFT RN
[2020-01-31 08:00] VITALS: BP 121/77
--- NOTE | 2020-01-31 08:00 | NUR ---
Opening Shift Note Received report from [facility] shift lead nurse, assumed care of patient, patient mildly asleep but alert when spoken to. No S/S of distress/SOB or pain. Bed alarm on, bed in lowest position. Instructed on POC and to call for assist PRN, will continue to monitor for changes Q1hr and PRN.
--- NOTE | 2020-01-31 08:00 | NUR ---
Respiratory note:PT ASSESSED FOR PRN MED NEB TX. . NO S/S OF ANY RESPIRATORY DISTRESS NOTED. B/S CLEAR/DIM. HR 80, RR 18, SPO2 94% ON RA. PT INFORMED TO HAVE RT PAGED IF NEEDED.
[2020-01-31] MEDS: Glucerna Carbsteady SHAKE Vanilla 8oz PO SCH ×3 (08:33→17:48)
[2020-01-31 09:10] VITALS: BP 121/77
[2020-01-31] MEDS: ASPirin 81 mg TAB PO SCH (09:41)
[2020-01-31] MEDS: SACUBITRIL-VALSARTAN 24mg/26mg TAB PO SCH ×2 (09:41→22:16)
[2020-01-31] MEDS: PANTOPRAZOLE 40 MG TAB PO SCH (09:42)
[2020-01-31] MEDS: CARVEDILOL 3.125 MG TAB PO SCH ×2 (09:42→22:15)
[2020-01-31] MEDS: POTASSIUM CHL 10 Meq TABLET PO SCH ×2 (09:42→22:16)
[2020-01-31] MEDS: CHOLECALCIFEROL (VITD3) 2,000 UNIT CAP PO SCH (09:43)
[2020-01-31] MEDS: ENOXAPARIN SOD 100 MG/1 ML SYRINGE SC SCH ×2 (09:43→20:54)
[2020-01-31] MEDS: ASCORBIC ACID 1,000 MG TAB PO SCH (09:43)
[2020-01-31 12:00] VITALS: BP 133/73
--- NOTE | 2020-01-31 12:10 | NUR ---
Dr Low and Dr Jerez at Bedside MDs to see pt. No new orders at this time. Will continue to monitor.
--- NOTE | 2020-01-31 12:31 | NUR ---
Nutrition Assessment Notes please see attached link for complete assessment Est [employer] needs BW 87 [id number] kcals (23-25 kcal/kgBW), Est Protein needs: 70-87 gms/day (0.8-0.9 gm/kgBW) d/t elev RFT. Will continue to monitor and reassess prn. Addendum: 01/31/20 at [address] Amended: Links added.
[2020-01-31 15:31] LABS: Folate (Folic Acid) 19.01 ng/mL (5.38-24)
[2020-01-31 16:52] VITALS: BP 127/77
[2020-01-31 22:00] VITALS: BP 149/78
[2020-01-31] MEDS: ATORVASTATIN 20 MG TAB PO SCH (22:16)
[2020-01-31] MEDS: LORazepam 2MG/ML-1ML VIAL IV PRN (22:43)
--- NOTE | 2020-01-31 23:00 | NUR ---
pt was confused and trying to get up. ativan given, will continue to monitor
--- NOTE | 2020-01-31 23:01 | NUR ---
Respiratory note: PT SEEN AND ASSESSED FOR PRN MED NEB TX AT 2301. TX IS NOT INDICATED AT THIS TIME. PT DISPLAYING NO SIGNS OF RESPIRATORY DISTRESS. HE WAS SLEEPING WHEN ENTERING THE ROOM. HR 78 RR 16 SP02 94% ON ROOM AIR.
--- NOTE | 2020-01-31 23:37 | NUR ---
Family updated on pt status of SUNI SHAHID updated on patient's status and condition. All questions and concerns addressed. verbalized understanding.
[2020-02-01] MEDS: ONDANSETRON HCL 4 MG/2 ML VIAL IV PRN (01:12)
[2020-02-01] MEDS: FUROSEMIDE 20 MG/2 ML VIAL IV SCH (04:31)
[2020-02-01 05:02] VITALS: BP 112/59
[2020-02-01] MEDS: InsuLIN REG 1unit/0.01ml Soln (100units/ml) SC SCH ×2 (06:17→11:05)
[2020-02-01] MEDS: ACCU-CHEK COMFORT CURVE STRIP VI SCH ×2 (06:17→11:05)
--- NOTE | 2020-02-01 06:47 | NUR ---
PRN MED NEB TX NOT INDICATED AT THIS TIME. HR 61, RR 16, SPO2 92% ON RA, BS CLEAR. NO SIGNS OR SYMPTOMS OF RESPIRATORY DISTRESS NOTED AT THIS TIME. RN AT BEDSIDE.
[2020-02-01 06:55] LABS: Basophils # (auto) 0.1 10 ^3/uL (0-0.2); Basophils % (auto) 0.4 % (0.0-2.0); Eosinophils # (auto) 0 10 ^3/uL (0-0.8); Eosinophils % (auto) 0.1 % (0.0-7.0); Hematocrit 38.7 % (41.0-53.0); Hemoglobin 12.7 g/dL (13.5-17.5); Lymphocytes # (auto) 3.2 10 ^3/uL (0.4-5.4); Lymphocytes % (auto) 20.5 % (10.0-50.0); Mean Corpuscular Hemoglobin 29.3 pg (28.0-32.0); Mean Corpuscular Hgb Conc. 32.9 g/dL (32.0-36.0); Mean Corpuscular Volume 88.9 fL (80.0-100.0); Monocytes # (auto) 1.4 10 ^3/uL (0-1.3); Monocytes % (auto) 8.8 % (0.0-12.0); Neutrophils % (auto) 70.2 % (37.0-80.0); Nucleated Red Blood Cells % 0.2 %; Platelet Count (auto) 433 10^3/uL (140-450); Red Blood Cells 4.35 10^6/uL (4.5-5.90); Red Cell Distribution Width 14.5 % (11.8-14.3); White Blood Cell 15.7 10^3/uL (4.4-10.8)
[2020-02-01 07:14] LABS: Potassium 3.6 mmol/L (3.5-5.1)
--- NOTE | 2020-02-01 07:26 | NUR ---
Opening Note Assumed pt care from NOC RN. Pt is a/ox4 with no s/s of distress or SOB. Pt is currently sitting upright in bed with no complaints at this time. Pt has been NPO since 0000 for [facility], pt aware of procedure and all questions were answered. Safety measures maintained with call light within reach, bed in lowest position and side rails up. Will continue to monitor for changes.
[2020-02-01 07:34] LABS: Albumin 3.1 g/dL (3.4-5.0); BUN/Creatinine Ratio 20.6; Bilirubin, Total 0.5 mg/dL (0.2-1.0); Calcium 8.7 mg/dL (8.5-10.1); Total Protein 7.3 g/dL (6.4-8.2)
[2020-02-01] MEDS: Glucerna Carbsteady SHAKE Vanilla 8oz PO SCH ×2 (07:38→12:00)
--- NOTE | 2020-02-01 07:38 | NUR ---
IV D/C'ed 20G to pt's R hand d/c'ed. Catheter removed fully intact. Dressing applied to site.
[2020-02-01] MEDS: PANTOPRAZOLE 40 MG TAB PO SCH (08:44)
[2020-02-01] MEDS: SACUBITRIL-VALSARTAN 24mg/26mg TAB PO SCH (08:44)
[2020-02-01] MEDS: ASPirin 81 mg TAB PO SCH (08:44)
[2020-02-01] MEDS: POTASSIUM CHL 10 Meq TABLET PO SCH (08:44)
[2020-02-01] MEDS: CARVEDILOL 3.125 MG TAB PO SCH (08:44)
[2020-02-01] MEDS: ASCORBIC ACID 1,000 MG TAB PO SCH (08:45)
[2020-02-01] MEDS: CHOLECALCIFEROL (VITD3) 2,000 UNIT CAP PO SCH (08:45)
[2020-02-01] MEDS: ENOXAPARIN SOD 100 MG/1 ML SYRINGE SC SCH (08:45)
[2020-02-01 09:00] VITALS: BP 95/62
[2020-02-01 09:28] LABS: Hepatitis B Surface Antibody Negative
[2020-02-01 10:00] LABS: Hepatitis A Total Antibody Positive
--- NOTE | 2020-02-01 10:12 | NUR ---
Pt Taken to Hosiery Looper Pt taken down to film laboratory technician via stretcher. All questions were answered.
[2020-02-01] MEDS ORDERED: LIDOCAINE 2%HCL (LOCAL ANESTH.) INJ 20ML MDV ONE (10:15)
[2020-02-01] MEDS ORDERED: IOHEXOL 350 MG/ML 100ML IJ ONE (10:15)
[2020-02-01] MEDS ORDERED: fentaNYL CITRATE 100 MCG/2 ML VL ONE (10:42)
[2020-02-01] MEDS ORDERED: HEPARIN SODIUM (PORCINE) 5000 UNITS/ML 1ML VIAL ONE (10:42)
[2020-02-01] MEDS ORDERED: ANGIOMAX 250 MG VIAL IV ONE (10:42)
[2020-02-01] MEDS ORDERED: VERAPAMIL 2.5MG/ML INJ 2ML VIAL IV ONE (10:42)
[2020-02-01] MEDS ORDERED: SODIUM CHL 0.9% 0 ML ONE (10:43)
[2020-02-01] MEDS ORDERED: MIDAZOLAM HCL 1MG/1ML-2 ML VIAL ONE (10:43)
[2020-02-01] MEDS ORDERED: NITROGLYCERIN 5MG/ML 10ML VIAL IV ONE (10:43)
[2020-02-01] MEDS ORDERED: IODIXANOL 320MG/ML 100ML BTL IV ONE (10:54)
[2020-02-01 11:00] LABS: Hepatitis B Surface Antigen Negative (Negative)
[2020-02-01 11:05] LABS: Hepatitis C Antibody Reactive (Negative)
[2020-02-01 11:38] LABS: Hepatitis B Core Total AB Positive
--- NOTE | 2020-02-01 11:40 | NUR ---
Positive Hep Panel Lab called to notify that pt has positive Hep A total, positive Hep B core and a reactive Hep C. Will notify doctor upon rounding.
[2020-02-01] MEDS ORDERED: SODIUM CHL 0.9% 500 ML IV ONE (11:45)
--- NOTE | 2020-02-01 11:57 | NUR ---
Dr Zimmerman at [facility] updated on POC and Hep panel results. New order to re-consult GI. Will implement and continue to monitor.
--- NOTE | 2020-02-01 12:09 | NUR ---
Pt Back on Unit Pt back from rd lab technician. Pt is a/ox4 with no s/s of distress or SOB. Vasc band to pt's R wrist present, to begin deflating at 1230. Safety measures initiated with call light within reach, bed in lowest position and side rails up. Will continue to monitor. Addendum: 02/01/20 at 1307 by RIKKI LOCKE RN RN Vasc band completely removed. Site is asymptomatic. Bandaid applied to side.
[2020-02-01 12:20] VITALS: BP 134/75
[2020-02-01] MEDS: LORazepam 2MG/ML-1ML VIAL IV PRN (12:38)
--- NOTE | 2020-02-01 16:05 | NUR ---
Pt Expressed Desire to Leave AMA Pt states, "we are not doing anything here any more, so I am going to leave". Discussed with pt and provided pt education regarding risks of leaving without having been cleared by a Dr. as well as what we are still pending at this point. Pt still adamant and wishes to leave.
[2020-02-01 16:19] VITALS: BP 140/83
--- NOTE | 2020-02-01 16:35 | NUR ---
Pt Left AMA Pt d/c'ed off unit via wheelchair. IV and tele box were d/c'ed prior to d/c. AMA form signed. Pt further provided education regarding risks, pt still wishes to leave. Pt took all belongings, medications, and all questions were answered. Pt is a/ox4 upon d/c with no s/s of distress.
== END 2020-02-01 16:30 | disposition left against medical advice (07) | DRG 280 ==
LOC: EDBD 06:38 → ER 06:38 → TELE 06:39 → TELE-WESTW 01-29 13:26
PROVIDERS: ADMIT Hospitalist; ATTEND Family Medicine
PROC: 4A023N7 Measurement of Cardiac Sampling and Pressure, Left Heart, Percutaneous Approach (ICD-10-PCS; principal; 2020-02-01)
PROC: B2111ZZ Fluoroscopy of Multiple Coronary Arteries using Low Osmolar Contrast (ICD-10-PCS; 2020-02-01)
PROC: B2151ZZ Fluoroscopy of Left Heart using Low Osmolar Contrast (ICD-10-PCS; 2020-02-01)
DX: I21.4 Non-ST elevation (NSTEMI) myocardial infarction (principal); J96.01 Acute respiratory failure with hypoxia; G93.41 Metabolic encephalopathy; N17.0 Acute kidney failure with tubular necrosis; I50.43 Acute on chronic combined systolic (congestive) and diastolic (congestive) heart failure; E44.0 Moderate protein-calorie malnutrition; D68.4 Acquired coagulation factor deficiency; F23 Brief psychotic disorder; I13.0 Hypertensive heart and chronic kidney disease with heart failure and stage 1 through stage 4 chronic kidney disease, or unspecified chronic kidney disease; R65.10 Systemic inflammatory response syndrome (SIRS) of non-infectious origin without acute organ dysfunction; E78.5 Hyperlipidemia, unspecified; D63.8 Anemia in other chronic diseases classified elsewhere; Z53.29 Procedure and treatment not carried out because of patient's decision for other reasons; Z20.828 Contact with and (suspected) exposure to other viral communicable diseases; E11.22 Type 2 diabetes mellitus with diabetic chronic kidney disease; E87.6 Hypokalemia; I25.10 Atherosclerotic heart disease of native coronary artery without angina pectoris; N18.9 Chronic kidney disease, unspecified; Z80.1 Family history of malignant neoplasm of trachea, bronchus and lung; Z80.43 Family history of malignant neoplasm of testis; Z86.73 Personal history of transient ischemic attack (TIA), and cerebral infarction without residual deficits; Z95.5 Presence of coronary angioplasty implant and graft; Z88.0 Allergy status to penicillin; Z68.26 Body mass index [BMI] 26.0-26.9, adult
CPT/HCPCS: 36415; 36600; 70450; 71045; 71275; 80048; 80053; 80061; 80202; 80307; 80320; 81001; 82140; 82607; 82728; 82746; 82805; 82962; 83036; 83605; 83615; 83735; 83880; 84443; 84484; 85025; 85379; 85610; 85730; 86141; 86704; 86706; 86708; 86803; 86850; 86900; 86901; 87040; 87086; 87340; 87426; 93005; 93306; 93970; 96361; 96365; 96375; 99152; 99291; C1887; G0378; J1815; J2185; J2250; J2405; J3490; Q9967

== ENCOUNTER 2020-02-10 08:40 | Inpatient (IN) | payer OTHER, MEDICAID ==
[~2020-02-10] VITALS: Ht 182.9 cm; Wt 90.3 kg
[~2020-02-10 08:40] MED LIST changes: -ASPI-543 PO; +CLON1TAB10 PO; +EZET10TA22 PO; +GABA300C10 PO; -HYDR-531 PO; +SACU1TAB PO; +VALS40TA2 PO
[2020-02-10 10:02] LABS: Basophils # (auto) 0 10 ^3/uL (0-0.2); Basophils % (auto) 0.3 % (0.0-2.0); Eosinophils # (auto) 0 10 ^3/uL (0-0.8); Eosinophils % (auto) 0.1 % (0.0-7.0); Hematocrit 28.6 % (41.0-53.0); Hemoglobin 9.4 g/dL (13.5-17.5); Lymphocytes # (auto) 0.7 10 ^3/uL (0.4-5.4); Lymphocytes % (auto) 7.8 % (10.0-50.0); Mean Corpuscular Hemoglobin 29.7 pg (28.0-32.0); Mean Corpuscular Hgb Conc. 33.1 g/dL (32.0-36.0); Mean Corpuscular Volume 89.7 fL (80.0-100.0); Monocytes # (auto) 1.2 10 ^3/uL (0-1.3); Monocytes % (auto) 12.6 % (0.0-12.0); Neutrophils # (auto) 7.4 10 ^3/uL (1.6-8.6); Neutrophils % (auto) 79.2 % (37.0-80.0); Platelet Count (auto) 221 10^3/uL (140-450); Red Blood Cells 3.18 10^6/uL (4.5-5.90); Red Cell Distribution Width 14.3 % (11.8-14.3); White Blood Cell 9.3 10^3/uL (4.4-10.8)
[2020-02-10 10:22] LABS: Albumin 2.4 g/dL (3.4-5.0); Anion Gap 7 (5-15); Blood Alcohol < 3.0 mg/dL (0-5); Blood Urea Nitrogen 32 mg/dL (7-18); Calcium 7.8 mg/dL (8.5-10.1); Carbon Dioxide 27 mmol/L (21-32); Chloride 104 mmol/L (98-107); Glucose 108 mg/dL (74-106); Magnesium 1.7 mg/dL (1.6-2.6); Potassium 3.6 mmol/L (3.5-5.1); Sodium 138 mmol/L (136-145)
[2020-02-10 10:27] LABS: Alanine Aminotransferase 52 U/L (16-61); Alkaline Phosphatase 61 U/L (45-117); Aspartate Aminotransferase 194 U/L (15-37); BUN/Creatinine Ratio 14.8; Bilirubin, Total 0.4 mg/dL (0.2-1.0); GFR African American 39 mL/min; GFR Non-African American 33 mL/min; Total Protein 6.5 g/dL (6.4-8.2)
[2020-02-10] MEDS ORDERED: ENOXAPARIN SOD 100 MG/1 ML SYRINGE SC ONE (13:15)
[2020-02-10] MEDS ORDERED: DexAMETHasone SOD PHOS 10MG/1ML VIAL INJ IV ONE (13:15)
[2020-02-10] MEDS ORDERED: DOXYCYCLINE 100MG/250ML 250 ML IV ONE (13:15)
[2020-02-10 13:58] LABS: Lactate Dehydrogenase 471 U/L (87-241)
[2020-02-10 14:10] LABS: CRP High Sensitivity > 19 mg/dL (< 0.3)
[2020-02-10] MEDS ORDERED: LACTULOSE 20Gm/30ML SOLN PO PRN (16:30)
[2020-02-10] MEDS ORDERED: MORPHINE SULF INJ 2 MG/ML SYRINGE 1ML IV PRN (16:30)
[2020-02-10] MEDS ORDERED: NITROGLYCERIN 0.4 MG SL TAB SL PRN (16:30)
[2020-02-10] MEDS ORDERED: ACETAMINOPHEN 500 MG TAB PO PRN (16:30)
[2020-02-10] MEDS ORDERED: DEXTROSE (50%) 50ML SYRG IV PRN (16:30)
[2020-02-10] MEDS ORDERED: PROMETHAZINE HCL 25 MG/ML 1ML IV PRN (16:30)
[2020-02-10] MEDS: ACCU-CHEK COMFORT CURVE STRIP VI SCH ×2 (18:41→21:53)
[2020-02-10] MEDS: SODIUM CHLORIDE 0.9% 1,000 ML IV SCH (18:41)
[2020-02-10] MEDS: InsuLIN REG 1unit/0.01ml Soln (100units/ml) SC SCH ×2 (18:42→21:51)
[2020-02-10] MEDS ORDERED: SODIUM CHLORIDE 0.9% 1,000 ML IV ONE (19:00)
[2020-02-10] MEDS ORDERED: NOREPINEPHRINE 8 MG/250ML KIT 250 ML IV SCH (19:00)
[2020-02-10] MEDS ORDERED: SODIUM CHLORIDE 0.9% 500 ML IV ONE (19:15)
[2020-02-10] MEDS: methylPREDNISolone SOD SUCC 40 MG/ML VL IV SCH (19:33)
[2020-02-10] MEDS: ALBUTEROL SULF HFA 90MCG INH 200DOSE IN PRN (20:38)
[2020-02-10] MEDS: BUDESONIDE (INHALATION) 180 MCG IH IN SCH (20:38)
[2020-02-10] MEDS ORDERED: AZITHROMYCIN 500MG/ 250ML 250 ML IV ONE (21:00)
[2020-02-10] MEDS: ATORVASTATIN 20 MG TAB PO SCH (21:47)
[2020-02-10] MEDS: CLINDAMYCIN 600MG IV 50 ML IV SCH (21:47)
[2020-02-10] MEDS: ENOXAPARIN SOD 100 MG/1 ML SYRINGE SC SCH (21:54)
[2020-02-10] MEDS ORDERED: CARVEDILOL 3.125 MG TAB PO SCH (22:00)
[2020-02-11 01:56] LABS: Protein, Urine 77.3 mg/dL (0.0-11.9)
[2020-02-11 01:57] LABS: Amphetamine Screen, Urine NEGATIVE (NEGATIVE); Barbiturate Scree,Urine NEGATIVE (NEGATIVE); Benzodiazephine Screen, Urine POSITIVE (NEGATIVE); Cannabinoid Screen, Urine NEGATIVE (NEGATIVE); Cocaine Screen, Urine NEGATIVE (NEGATIVE); Opiate Scree,Urine POSITIVE (NEGATIVE); Phencyclidine Screen, Urine NEGATIVE (NEGATIVE)
[2020-02-11 02:13] LABS: Alcohol, Urine < 3.0 mg/dL (0-10)
[2020-02-11 02:17] LABS: Urine Amorphous Crystal FEW /hpf (None Seen); Urine Bacteria FEW /hpf (None Seen); Urine Blood 2+ /uL (Negative); Urine Specific Gravity 1.014 (1.001-1.035); Urine WBC 2 /hpf (0 - 3)
[2020-02-11] MEDS: SODIUM CHLORIDE 0.9% 1,000 ML IV SCH (05:50)
[2020-02-11] MEDS: CLINDAMYCIN 600MG IV 50 ML IV SCH ×2 (06:00→14:16)
[2020-02-11] MEDS: ACCU-CHEK COMFORT CURVE STRIP VI SCH ×4 (06:53→22:23)
[2020-02-11] MEDS: InsuLIN REG 1unit/0.01ml Soln (100units/ml) SC SCH ×4 (07:03→22:44)
[2020-02-11] MEDS: methylPREDNISolone SOD SUCC 40 MG/ML VL IV SCH (07:08)
[2020-02-11] MEDS ORDERED: AZITHROMYCIN 500MG/ 250ML 250 ML IV SCH (10:00)
[2020-02-11] MEDS ORDERED: DexAMETHasone SOD PHOS 10MG/1ML VIAL INJ IV SCH (10:00)
[2020-02-11] MEDS: BUDESONIDE (INHALATION) 180 MCG IH IN SCH ×2 (10:00→23:35)
[2020-02-11] MEDS ORDERED: NITROGLYCERIN 0.2MG/HR TOPICAL PATCH TD SCH (10:00)
[2020-02-11] MEDS: ENOXAPARIN SOD 100 MG/1 ML SYRINGE SC SCH ×2 (10:23→22:23)
[2020-02-11] MEDS: CHOLECALCIFEROL (VITD3) 2,000 UNIT CAP PO SCH (10:23)
[2020-02-11] MEDS: ASCORBIC ACID 1,000 MG TAB PO SCH (10:23)
[2020-02-11] MEDS: ZINC SULFATE 220mg CAP or TAB PO SCH (10:23)
[2020-02-11 10:40] LABS: Basophils # (auto) 0 10 ^3/uL (0-0.2); Basophils % (auto) 0.2 % (0.0-2.0); Eosinophils # (auto) 0 10 ^3/uL (0-0.8); Hematocrit 29.8 % (41.0-53.0); Hemoglobin 9.7 g/dL (13.5-17.5); Lymphocytes # (auto) 0.7 10 ^3/uL (0.4-5.4); Lymphocytes % (auto) 17.5 % (10.0-50.0); Mean Corpuscular Hemoglobin 29.4 pg (28.0-32.0); Mean Corpuscular Hgb Conc. 32.7 g/dL (32.0-36.0); Mean Corpuscular Volume 89.6 fL (80.0-100.0); Monocytes # (auto) 0.1 10 ^3/uL (0-1.3); Monocytes % (auto) 3.5 % (0.0-12.0); Neutrophils % (auto) 78.8 % (37.0-80.0); Platelet Count (auto) 214 10^3/uL (140-450); Red Blood Cells 3.32 10^6/uL (4.5-5.90); Red Cell Distribution Width 14.8 % (11.8-14.3); White Blood Cell 3.8 10^3/uL (4.4-10.8)
[2020-02-11 11:03] LABS: Albumin 2.1 g/dL (3.4-5.0); Calcium 7.8 mg/dL (8.5-10.1); Potassium 3.5 mmol/L (3.5-5.1)
[2020-02-11 11:09] LABS: Bilirubin, Total 0.4 mg/dL (0.2-1.0); Phosphorus 2.5 mg/dL (2.5-4.90); Total Protein 6.1 g/dL (6.4-8.2)
[2020-02-11] MEDS: ALBUTEROL SULF HFA 90MCG INH 200DOSE IN PRN (13:18)
[2020-02-11] MEDS ORDERED: FUROSEMIDE 20 MG/2 ML VIAL IV ONE (15:45)
[2020-02-11 16:00] VITALS: BP 133/70
--- NOTE | 2020-02-11 16:00 | NUR ---
Telemetry admit from ER SUNI SHAHID admitted to Telemetry unit after SBAR received. Patient oriented to JIMMY STRONG, RN primary RN, unit, room, bed, and unit policies regarding patient care and visiting hours. Patient now on continuous telemetry monitoring, tele box # 65. Patient weighed by bed scale and encouraged to call if they need something. All questions and concerns addressed, patient verbalized understanding. VS: 133/70, 97.7, 65, 20, 93%.
[2020-02-11 16:59] LABS: INR 1.3 (0.9-1.15)
[2020-02-11] MEDS: traMADol HCL 50 MG TAB PO PRN ×2 (17:24→22:24)
[2020-02-11 17:37] VITALS: BP 133/70
--- NOTE | 2020-02-11 17:41 | NUR ---
Assessment Unable to speak to patient. Contact patient Ana left her a voice mail. No Call. Will follow up.
[2020-02-11 18:30] LABS: % Iron Saturation 45.3 % (20-55)
--- NOTE | 2020-02-11 19:09 | NUR ---
MRSA swab sent to lab
--- NOTE | 2020-02-11 19:45 | NUR ---
Patient reports that his blue jeans are missing and that his wallet was in his pants. Patient reports that the wallet contained "around $300 and some credit cards". Patient states that he had both in ER, but neither is with him in is room. 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 Room searched by this RN, unable to locate neither jeans nor wallet. ER staff contacted by dehydration unit operator Courtney. Per Courtney, ER staff reports patient's jeans and wallet are not there, but they will continue to look for them. yarn weight and strength tester Donna contacted by Courtney MIDDLETON to notify of incident. Will continue care.
--- NOTE | 2020-02-11 20:00 | NUR ---
IV removal IV to patient's right hand infiltrated, DC'd with clean sterile technique, catheter fully intact. Pressure dressing applied to site. Patient tolerated well. Midline to left upper arm still asymptomatic, patent, and intact. Will continue to monitor.
[2020-02-11 22:00] VITALS: BP 117/54
[2020-02-11] MEDS: SACUBITRIL-VALSARTAN 24mg/26mg TAB PO SCH (22:23)
[2020-02-11] MEDS: ATORVASTATIN 20 MG TAB PO SCH (22:23)
[2020-02-12] MEDS: ALBUTEROL SULF HFA 90MCG INH 200DOSE IN PRN (01:38)
[2020-02-12] MEDS: MORPHINE SULF INJ 2 MG/ML SYRINGE 1ML IV PRN ×2 (02:32→08:25)
[2020-02-12 05:00] VITALS: BP 149/72
[2020-02-12] MEDS: InsuLIN REG 1unit/0.01ml Soln (100units/ml) SC SCH ×2 (06:47→11:30)
[2020-02-12] MEDS: ACCU-CHEK COMFORT CURVE STRIP VI SCH ×2 (06:47→12:08)
--- NOTE | 2020-02-12 06:55 | NUR ---
Patient's midline catheter found sitting on bed next to patient. Patient stated, "I don't know how that happened." Midline catheter noted to be completely intact. No s/s of bleeding to patient's left arm. Patient has no IV access at this time. Patient requesting PRN Morphine and made aware that medication cannot be administered without IV access, patient verbalized understanding. Will make dayshift RN aware and endorse care.
--- NOTE | 2020-02-12 07:25 | NUR ---
Patient lying in bed, awake and alert. No s/s of distress. Call light within reach. Care endorsed to dayshift RN.
[2020-02-12 07:45] LABS: Basophils # (auto) 0 10 ^3/uL (0-0.2); Basophils % (auto) 0.1 % (0.0-2.0); Eosinophils # (auto) 0 10 ^3/uL (0-0.8); Hemoglobin 9.7 g/dL (13.5-17.5); Lymphocytes # (auto) 0.9 10 ^3/uL (0.4-5.4); Lymphocytes % (auto) 7.2 % (10.0-50.0); Mean Corpuscular Hemoglobin 29.7 pg (28.0-32.0); Mean Corpuscular Hgb Conc. 33.5 g/dL (32.0-36.0); Mean Corpuscular Volume 88.7 fL (80.0-100.0); Monocytes # (auto) 0.5 10 ^3/uL (0-1.3); Monocytes % (auto) 4.5 % (0.0-12.0); Neutrophils # (auto) 10.4 10 ^3/uL (1.6-8.6); Neutrophils % (auto) 88.2 % (37.0-80.0); Platelet Count (auto) 211 10^3/uL (140-450); Red Blood Cells 3.27 10^6/uL (4.5-5.90); Red Cell Distribution Width 14.7 % (11.8-14.3); White Blood Cell 11.8 10^3/uL (4.4-10.8)
[2020-02-12] MEDS: BUDESONIDE (INHALATION) 180 MCG IH IN SCH (07:52)
[2020-02-12 08:00] VITALS: BP 135/55
[2020-02-12 08:00] LABS: Albumin 2.4 g/dL (3.4-5.0); Potassium 3.3 mmol/L (3.5-5.1)
[2020-02-12 08:02] LABS: BUN/Creatinine Ratio 23.5; Bilirubin, Total 0.4 mg/dL (0.2-1.0); Total Protein 6.4 g/dL (6.4-8.2)
[2020-02-12 08:30] VITALS: BP 135/55
[2020-02-12] MEDS: ZINC SULFATE 220mg CAP or TAB PO SCH (09:13)
[2020-02-12] MEDS: SACUBITRIL-VALSARTAN 24mg/26mg TAB PO SCH (09:13)
[2020-02-12] MEDS: ASCORBIC ACID 1,000 MG TAB PO SCH (09:14)
[2020-02-12] MEDS: CHOLECALCIFEROL (VITD3) 2,000 UNIT CAP PO SCH (09:14)
[2020-02-12] MEDS ORDERED: POTASSIUM EFFERVESENT TAB 25 MEQ PO ONE (09:15)
--- NOTE | 2020-02-12 09:25 | NUR ---
Dr Pagan called regarding cardio consult. No orders received
[2020-02-12] MEDS ORDERED: DexAMETHasone SOD PHOS 10MG/1ML VIAL INJ IV SCH (10:00)
[2020-02-12] MEDS ORDERED: PANTOPRAZOLE 40 MG TAB PO SCH (10:00)
[2020-02-12] MEDS ORDERED: FUROSEMIDE 20 MG/2 ML VIAL IV SCH (10:00)
--- NOTE | 2020-02-12 10:40 | NUR ---
Dr Seo bedside with patient
[2020-02-12] MEDS: ENOXAPARIN SOD 100 MG/1 ML SYRINGE SC SCH (11:05)
--- NOTE | 2020-02-12 12:00 | NUR ---
Patient stated he may leave the hospital, he cannot reach his and he wants to go home to check things out. Patient has been educated on the importance of staying in the hospital, however, patient said he will leave if he does not reach her by phone. I left a message for patients , Ana, to call hospital.
[2020-02-12 12:21] VITALS: BP 161/82
[2020-02-12] MEDS ORDERED: VANCOMYCIN HCL 125MG/5ML ORAL SOL PO ONE (12:30)
--- NOTE | 2020-02-12 14:00 | NUR ---
Tried calling patients , Ana, again. Message left.
[2020-02-12] MEDS: traMADol HCL 50 MG TAB PO PRN (14:10)
--- NOTE | 2020-02-12 16:20 | NUR ---
AMA Note SUNI SHAHID states he wants to leave the hospital Against Medical Advice (AMA). Patient encouraged to stay for further treatment/stabilization. Dr Hinds notified of patient's wishes. Patient alert and oriented and advised of the risks and benefits of leaving AMA. Patient said he understands but has to "go home to check on things at the house since the won't answer the phone". Patient left without shoes, socks provided to patient, and again patient was advised to stay at the hospital. Patient informed me he will not stay and is leaving. Patient verbalized understanding. Patient provided with N95. Patient encouraged to return to the ER if symptoms do not improve or worsen. Patient left with personal belongings at his bedside.
[2020-02-12] MEDS ORDERED: VANCOMYCIN HCL 125MG/5ML ORAL SOL PO SCH (18:00)
== END 2020-02-12 16:38 | disposition left against medical advice (07) | DRG 871 ==
LOC: EDBD 08:40 → ER 08:40 → TELE 08:41 → TELE-EAST 02-11 15:53
PROVIDERS: ADMIT Internal Medicine; ATTEND Internal Medicine
DX: A41.89 Other specified sepsis (principal); U07.1 COVID-19; J12.89 Other viral pneumonia; J96.00 Acute respiratory failure, unspecified whether with hypoxia or hypercapnia; I50.43 Acute on chronic combined systolic (congestive) and diastolic (congestive) heart failure; I21.A1 Myocardial infarction type 2; N17.0 Acute kidney failure with tubular necrosis; G93.41 Metabolic encephalopathy; I13.0 Hypertensive heart and chronic kidney disease with heart failure and stage 1 through stage 4 chronic kidney disease, or unspecified chronic kidney disease; J44.0 Chronic obstructive pulmonary disease with (acute) lower respiratory infection; J44.1 Chronic obstructive pulmonary disease with (acute) exacerbation; E46 Unspecified protein-calorie malnutrition; Z53.29 Procedure and treatment not carried out because of patient's decision for other reasons; E87.6 Hypokalemia; I48.91 Unspecified atrial fibrillation; E88.09 Other disorders of plasma-protein metabolism, not elsewhere classified; E11.22 Type 2 diabetes mellitus with diabetic chronic kidney disease; R19.7 Diarrhea, unspecified; D63.8 Anemia in other chronic diseases classified elsewhere; E66.3 Overweight; N18.9 Chronic kidney disease, unspecified; I25.10 Atherosclerotic heart disease of native coronary artery without angina pectoris; I25.2 Old myocardial infarction; Z95.5 Presence of coronary angioplasty implant and graft; Z86.73 Personal history of transient ischemic attack (TIA), and cerebral infarction without residual deficits; Z88.0 Allergy status to penicillin; Z90.49 Acquired absence of other specified parts of digestive tract; Z91.19 Patient's noncompliance with other medical treatment and regimen; Z68.27 Body mass index [BMI] 27.0-27.9, adult; Z85.118 Personal history of other malignant neoplasm of bronchus and lung; Z80.43 Family history of malignant neoplasm of testis; Z80.1 Family history of malignant neoplasm of trachea, bronchus and lung
CPT/HCPCS: 36415; 70450; 71045; 76775; 80053; 80307; 80320; 81001; 82306; 82550; 82570; 82728; 82962; 83540; 83550; 83605; 83615; 83735; 83880; 83970; 84100; 84156; 84300; 84443; 84484; 85025; 85379; 85610; 86141; 86850; 86900; 86901; 87040; 87081; 87426; 93005; 94640; 99291; G0378; J1100; J1815; J1956; J3490